=== PATIENT | male | born 1950 | race Caucasian/White ===

== ENCOUNTER 2022-10-25 08:33 | Emergency (ER) | payer OTHER, MEDICAID ==
[~2022-10-25] VITALS: Ht 172.7 cm; Wt 79.8 kg
--- NOTE | 2022-10-25 08:37 | NUR ---
PATIENT BIBA / TO ED BED 03 BLS
[2022-10-25 08:46] VITALS: O2SAT 94
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
[2022-10-25 09:55] VITALS: BP 145/80; PULSE 71; RESP 17; TEMP 97.4; O2SAT 97
[2022-10-25] MEDS ORDERED: KETOROLAC 30 MG/ML VIAL IM ONE (09:55)
[2022-10-25] MEDS ORDERED: BACITRACIN OINT 500 UNITS/GM PKT TP ONE (09:55)
--- NOTE | 2022-10-25 10:15 | NUR ---
PT IN RADIOLOGY
--- NOTE | 2022-10-25 10:31 | NUR ---
PT BACK FROM X-RAY
--- NOTE | 2022-10-25 10:53 | NUR ---
WOUND TO R POSTERIOR ELBOW IRRIGATED WITH BETADINE AND NORMAL SALINE SOLUTION. DRESSED WITH NON ADHERENT AND BANDAGED WITH ROLL GAUZE.
[2022-10-25] MEDS ORDERED: HYDROcodone/APAP 5/325 MG 1 TAB TAB PO ONE (11:45)
[2022-10-25] MEDS ORDERED: NACL 0.9% 1,000 ML IV ONE (11:50)
[2022-10-25] MEDS ORDERED: MORPHINE SULFATE 4 MG/ML SYR IVP ONE (11:50)
[2022-10-25] MEDS ORDERED: ONDANSETRON 4 MG/2 ML VIAL IVP ONE (11:50)
[2022-10-25 12:15] VITALS: TEMP 97.1
[2022-10-25 12:23] LABS: PROTHROMBIN TIME 10.5 secs (10.8-13.4)
[2022-10-25 12:26] LABS: ALBUMIN 3.6 g/dL (3.4-5.0); ANION GAP 9.1 (8-16); ASPARTATE AMINOTRANSFERASE 78 U/L (15-37); CHLORIDE 98 mmol/L (98-107); CREATININE 0.8 mg/dL (0.6-1.3); GLUCOSE 99 mg/dL (74-106); POTASSIUM 4.1 mmol/L (3.5-5.1); SODIUM SERUM 133 mmol/L (136-145); TOTAL BILIRUBIN 0.6 mg/dL (0.0-1.0); UREA NITROGEN, BLOOD 14 mg/dL (7-18)
--- NOTE | 2022-10-25 13:04 | NUR ---
Per Hitesh Barron LVN, clarification of start and end time of NaCl 0.9 1L started at 1204 and stopped at 1304. ED director aware.
[2022-10-25 13:05] LABS: BASOPHILS % (AUTO) 0.2 % (0.0-2.0); EOSINOPHILS # (AUTO) 0.1 K/uL (0-0.4); EOSINOPHILS % (AUTO) 0.5 % (0.0-4.0); HEMATOCRIT 46.7 % (36-52); LYMPHOCYTES # (AUTO) 1.1 K/uL (2.0-11.5); LYMPHOCYTES % (AUTO) 6.4 % (20.5-51.1); MEAN CORPUSCULAR HEMOGLOBIN 33 pg (27-31); MEAN CORPUSCULAR HGB CONC 34 g/dL (33-37); MEAN CORPUSCULAR VOLUME 95.3 fL (80-94); MONOCYTES # (AUTO) 1.5 K/uL (0.8-1.0); MONOCYTES % (AUTO) 8.5 % (1.7-9.3); NEUTROPHILS # (AUTO) 14.7 K/uL (1.8-7.7); NEUTROPHILS % (AUTO) 84.4 % (42.2-75.2); PLATELET COUNT (AUTO) 284 K/uL (140-450); RED CELL DISTRIBUTION WIDTH 14.9 % (11.6-13.7); WHITE BLOOD COUNT (AUTO) 17.4 K/uL (4.8-10.8)
[2022-10-25 13:30] LABS: APPEARANCE,URINE CLEAR (CLEAR); BILIRUBIN,URINE NEGATIVE (NEGATIVE); BLOOD, URINE TRACE-I (NEGATIVE); COLOR,URINE YELLOW (YELLOW); LEUKOCYTE ESTERASE ,URINE NEGATIVE (NEGATIVE); NITRITE, URINE NEGATIVE (NEGATIVE); PH,URINE 7.5 (5.0-9.0); UGLUCOSE NEGATIVE (NEGATIVE)
--- NOTE | 2022-10-25 13:30 | NUR ---
FRANCESCO BONILLA GAVE UPDATED INFO ON PATIENT.
--- NOTE | 2022-10-25 16:10 | NUR ---
REPORT GIVEN TO SHARIFA GRIFFITH RN FOR CONTINUATION OF CARE.
--- NOTE | 2022-10-25 16:45 | NUR ---
PATIENT WENT TO [facility]
[2022-10-25 16:51] VITALS: BP 116/71; PULSE 76; RESP 17; O2SAT 98
== END 2022-10-25 16:45 | disposition short-term general hospital (02) ==
LOC: MED 08:33
DX: S22.41XA Multiple fractures of ribs, right side, initial encounter for closed fracture (principal); S50.311A Abrasion of right elbow, initial encounter; I71.9 Aortic aneurysm of unspecified site, without rupture; J93.9 Pneumothorax, unspecified; F17.210 Nicotine dependence, cigarettes, uncomplicated; V49.88XA Car occupant (driver) (passenger) injured in other specified transport accidents, initial encounter; Y93.89 Activity, other specified; Y92.89 Other specified places as the place of occurrence of the external cause; Y99.8 Other external cause status
CPT/HCPCS: 36415; 71045; 71260; 72072; 72128; 72131; 74177; 80053; 81003; 85025; 85610; 85730; 96372; 96374; 96375; 99285; J1885; J2270; J2405; J7030; Q9967